=== PATIENT | male | born 1995 | race Asian ===

== ENCOUNTER 2017-03-26 18:43 | Emergency (ER) | payer OTHER ==
[~2017-03-26] VITALS: Ht 180.3 cm; Wt 72.8 kg
[2017-03-26 18:59] VITALS: TEMP 36.6; Ht 180.3 cm; Wt 72.8 kg
[2017-03-26] MEDS ORDERED: IBUPROFEN 600 MG TAB PO STA (19:12)
[2017-03-26] MEDS ORDERED: SODIUM CHLORIDE 0.9% 1000ML 1,000 ML IV STA (19:12)
[2017-03-26 19:37] LABS: BASO % 0.1 %; BASO ABS # 0.01 K/uL (0-0.2); COMPLETE YES; EOS % 0.2 %; HEMATOCRIT 47.9 % (42-52); IG% 0.2 %; LYMPH % 16.2 %; LYMPH ABS # 2.03 K/uL (1.2-3.4); MEAN CORPUSCULAR HEMOGLOBIN 27.1 pg (25-34); MEAN PLATELET VOLUME 9.3 fL (7.4-10.4); MONO % 6.1 %; NEUT % 77.2 %; PLATELET COUNT 212 K/uL (130-400); RED BLOOD COUNT 5.84 M/uL (4.7-6.1); WHITE BLOOD COUNT 12.54 K/uL (4.8-10.8)
[2017-03-26] MEDS ORDERED: [UNRECOGNIZED DRUG - OTHER] PO (19:37)
[2017-03-26 19:46] LABS: INR 1.1 (0.9-1.1); PARTIAL THROMBOPLASTIN RATIO 1.4; PROTHROMBIN TIME (PATIENT) 12.3 SECONDS (9.0-12.0)
--- NOTE | 2017-03-26 19:47 | DIAGNOSTIC IMAGING REPORT ---
CHEST 2 VIEWS ROUTINE CLINICAL HISTORY: Fever COMPARISON STUDY: No previous studies for comparison. FINDINGS: The cardiac and mediastinal contours are normal. There is no evidence of focal pulmonary consolidation. There is no evidence of failure. No pleural effusions are visualized.[ IMPRESSION: No active disease in the chest. Electronically signed by: Arnav Cazares M.D. 03/26/2017 7:46 PM Dictated Date/Time: 03/26/2017 7:46 PM
[2017-03-26 19:56] LABS: BUN/CREATININE RATIO 8.3 (10-20); CALCIUM 9.1 mg/dl (8.5-10.1); CREATININE 1.2 mg/dl (0.60-1.40); POTASSIUM 3.5 mmol/L (3.5-5.1)
[2017-03-26 20:10] LABS: URINE APPEARANCE CLOUDY (CLEAR); URINE BILIRUBIN NEG (NEG); URINE COLOR YELLOW; URINE EPITHELIAL CELL AUTO 20-30 /lpf (0-5); URINE NITRITE NEG (NEG); URINE PH 6.5 (4.5-7.5); URINE SPECIFIC GRAVITY 1.014 (1.000-1.030); UROBILINOGEN NEG (NEG)
[2017-03-26 20:11] LABS: MANUAL MICROSCOPIC REQUIRED? NO; REVIEW REQ? NO
[2017-03-26] MEDS ORDERED: CIPROFLOXACIN 500 MG TAB PO STA (20:25)
[2017-03-26 20:40] LABS: LYME DISEASE AB IGG NEG (NEG); LYME DISEASE AB IGM NEG (NEG)
[2017-03-26] MEDS ORDERED: CIPR-255 PO (20:54)
[2017-03-26 21:14] VITALS: BP 110/72; PULSE 89; O2SAT 95
--- NOTE | 2017-03-26 23:51 | EMERGENCY ROOM VISIT NOTE ---
History Report prepared by Wilfrido: Gabrielle Carrillo Under the Supervision of: Dr. Jordan Marks M.D. First contact with patient: 19:07 Chief Complaint: FEVER Stated Complaint: FEVER History of Present Illness The patient is a 21 year old male who presents to the Emergency Room with complaints of a constant fever beginning this morning. The patient states that he began to feel sick this morning and had chills and was shaking. He reports that he had some difficulty walking due to his shaking and notes that he gets a slight headache with standing. The patient states that his headache is now mostly resolved. He denies any significant neck pain or stiffness. He does note some mild burning with urination. He denies any cough, runny nose, sore throat, vomiting, abdominal pain, diarrhea, rash, and known tick bites. The patient states that he checked his temperature this morning and it was normal but this afternoon it was 102. He notes that he took 2 Tylenol 2 hours ago. Source of History: patient Onset: this morning Position: other (global) Symptom Intensity: 102 Quality: other (fever) Timing: constant Associated Symptoms: + chills, + headache (very mild), + urinary symptoms, No sorethroat, No cough, No vomiting, No abdominal pain, No diarrhea, No rash Note: Pt complains of shakiness and difficulty walking. He denies any runny nose and known tick bites Review of Systems See HPI for pertinent positives & negatives. A total of 10 systems reviewed and were otherwise negative. Past Medical & Surgical Medical Problems: (1) No Known Active Medical Problems Family History Cancer Diabetes mellitus FHx: gallbladder disease Heart disease Hypertension Kidney disease Kidney stones Social History Smoking Status: Never Smoker Smokeless Tobacco Use: No Alcohol Use: none Marital Status: single Housing Status: lives with roommate Occupation Status: [employer] student Current/Historical Medications Scheduled Ciprofloxacin Hcl (Cipro), 500 MG PO BID Scheduled PRN [Tylenol Complete], 2 TABS PO Q12 PRN for Pain or Fever Allergies Coded Allergies: No Known Allergies (Unverified , 03/26/17) Physical Exam Vital Signs Date Time Temp Pulse Resp B/P (MAP) Pulse Ox O2 Delivery O2 Flow Rate FiO2 03/26/17 21:14 89 18 110/72 95 03/26/17 20:05 81 16 115/77 100 Room Air 03/26/17 18:59 36.6 102 18 116/80 98 Room Air Physical Exam Constitutional: Vital signs reviewed. Eyes: Pupils are equal round reactive to light. Conjunctiva are noninjected. ENT: Pharynx is clear without erythema or exudate. Mucous membranes are moist. Neck supple without meningeal signs. Respiratory: Clear to auscultation bilaterally. Breath sounds are equal bilaterally. Cardiovascular: Regular rate and rhythm. No rubs or gallops. GI: Soft, nondistended and nontender. Bowel sounds are present. Musculoskeletal: No peripheral edema. No CVA tenderness. Integumentary: No cyanosis. Neurological: The patient is awake and alert. No focal deficits. Psychiatric: Normal affect. Medical Decision & Procedures ER Provider Diagnostic Interpretation: X-ray results as stated below per interpretation by me and the radiologist: CHEST 2 VIEWS ROUTINE FINDINGS: The cardiac and mediastinal contours are normal. There is no evidence of focal pulmonary consolidation. There is no evidence of failure. No pleural effusions are visualized. IMPRESSION: No active disease in the chest. Electronically signed by: Arnav Cazares M.D. 03/26/2017 7:46 PM Dictated Date/Time: 03/26/2017 7:46 PM Laboratory Results 03/26/17 19:24 Red Blood Count 5.84, Mean Corpuscular Volume 82.0, Mean Corpuscular Hemoglobin 27.1, Mean Corpuscular Hemoglobin Concent 33.0, Mean Platelet Volume 9.3, Neutrophils (%) (Auto) 77.2, Lymphocytes (%) (Auto) 16.2, Monocytes (%) (Auto) 6.1, Eosinophils (%) (Auto) 0.2, Basophils (%) (Auto) 0.1, Neutrophils # (Auto) 9.67, Lymphocytes # (Auto) 2.03, Monocytes # (Auto) 0.77, Eosinophils # (Auto) 0.03, Basophils # (Auto) 0.01 03/26/17 19:24 Test 03/26/17 19:24 White Blood Count 12.54 K/uL (4.8-10.8) Red Blood Count 5.84 M/uL (4.7-6.1) Hemoglobin 15.8 g/dL (14.0-18.0) Hematocrit 47.9 % (42-52) Mean Corpuscular Volume 82.0 fL (80-100) Mean Corpuscular Hemoglobin 27.1 pg (25-34) Mean Corpuscular Hemoglobin Concent 33.0 g/dl (32-36) Platelet Count 212 K/uL (130-400) Mean Platelet Volume 9.3 fL (7.4-10.4) Neutrophils (%) (Auto) 77.2 % Lymphocytes (%) (Auto) 16.2 % Monocytes (%) (Auto) 6.1 % Eosinophils (%) (Auto) 0.2 % Basophils (%) (Auto) 0.1 % Neutrophils # (Auto) 9.67 K/uL (1.4-6.5) Lymphocytes # (Auto) 2.03 K/uL (1.2-3.4) Monocytes # (Auto) 0.77 K/uL (0.11-0.59) Eosinophils # (Auto) 0.03 K/uL (0-0.5) Basophils # (Auto) 0.01 K/uL (0-0.2) RDW Standard Deviation 38.2 fL (36.4-46.3) RDW Coefficient of Variation 12.7 % (11.5-14.5) Immature Granulocyte % (Auto) 0.2 % Immature Granulocyte # (Auto) 0.03 K/uL (0.00-0.02) Prothrombin Time 12.3 SECONDS (9.0-12.0) Prothromb Time International Ratio 1.1 (0.9-1.1) Activated Partial Thromboplast Time 35.3 SECONDS (21.0-31.0) Partial Thromboplastin Ratio 1.4 Urine Color YELLOW Urine Appearance CLOUDY (CLEAR) Urine pH 6.5 (4.5-7.5) Urine Specific [place] 1.014 (1.000-1.030) Urine Protein 1+ (NEG) Urine Glucose (UA) NEG (NEG) Urine Ketones 1+ (NEG) Urine Occult Blood 2+ (NEG) Urine Nitrite NEG (NEG) Urine Bilirubin NEG (NEG) Urine Urobilinogen NEG (NEG) Urine Leukocyte Esterase LARGE (NEG) Urine WBC (Auto) >30 /hpf (0-5) Urine RBC (Auto) 10-30 /hpf (0-4) Urine Hyaline Casts (Auto) 0 /lpf (0-5) Urine Epithelial Cells (Auto) 20-30 /lpf (0-5) Urine Bacteria (Auto) 3+ (NEG) Anion Gap 7.0 mmol/L (3-11) Est Creatinine Clear Calc Drug Dose 100.3 ml/min Estimated GFR () 99.6 Estimated GFR (Non- 85.9 BUN/Creatinine Ratio 8.3 (10-20) Calcium Level 9.1 mg/dl (8.5-10.1) Total Bilirubin 2.4 mg/dl (0.2-1) Direct Bilirubin 0.2 mg/dl (0-0.2) Aspartate Amino Transf (AST/SGOT) 10 U/L (15-37) Alanine Aminotransferase (ALT/SGPT) 17 U/L (12-78) Alkaline Phosphatase 92 U/L (45-117) Total Protein 8.3 gm/dl (6.4-8.2) Albumin 4.5 gm/dl (3.4-5.0) Lyme Disease IgG Antibody NEG (NEG) Lyme Disease IgM Antibody NEG (NEG) Monoscreen NEG (NEG) Laboratory results as reviewed by me. Medications Administered Medications (Trade) Dose Ordered Sig/Kiran Route Start Time Stop Time Status Last Admin Dose Admin Sodium Chloride 1,000 ml @ 999 mls/hr Q1H1M STAT IV 03/26/17 19:12 03/26/17 20:12 DC 03/26/17 19:29 999 MLS/HR Ibuprofen (Motrin Tab) 600 mg NOW STAT PO 03/26/17 19:12 03/26/17 19:14 DC 03/26/17 19:29 600 MG Ciprofloxacin (Cipro Tab) 500 mg NOW STAT PO 03/26/17 20:25 03/26/17 20:27 DC 03/26/17 21:10 500 MG ED Course 1906: The patient was evaluated in room C2. A complete history and physical exam was performed. 1911: Motrin Tab 600mg PO, Sodium Chloride 1000 ml @ 999 mls/hr IV. 2024: Cipro Tab 500mg PO. 2046: I discussed the test results with the patient and his friend. 2058: Upon reevaluation, the patient appeared to have improvement of his symptoms. I discussed tonight's findings with the patient. He verbalized agreement of the treatment plan. The patient was discharged home. Medical Decision This is a 21-year-old male who presents with a fever. Differential diagnoses considered include viral syndrome, infectious mononucleosis, Lyme disease, pneumonia, UTI, meningitis. I did perform a limited focused review of portions of the patient's old chart on the electronic medical record. The patient has had no prior visits to this hospital. I did evaluate the patient as noted above. The patient is presenting with a fever. He also complains of urinary symptoms. IV access was established. I did order and personally review the patient's urinalysis and chest x-ray as described above. He does have a UTI. A urine culture was sent. I did treat him with Cipro. I did order and review the patient's blood work as noted in the electronic medical record. His white blood cell count is mildly elevated. I did discuss the test results with the patient and his friend. I did treat the patient with Motrin and normal saline IV. I did recommend close follow up with a regular physician. He was discharged with a prescription for Cipro. Medication Reconcilliation Current Medication List: was personally reviewed by me Blood Pressure Screening Patient's blood pressure: Normal blood pressure Blood pressure disposition: Did not require urgent referral Impression Primary Impression: UTI (urinary tract infection) Scribe Attestation The scribe's documentation has been prepared under my direct and personally reviewed by me in its entirety. I confirm that the note above accurately reflects all work, treatment, procedures, and medical decision making performed by me. Departure Information Dispostion Home / Self-Care Prescriptions Ciprofloxacin Hcl (CIPRO) 500 Mg Tab 500 MG PO BID, #20 TAB Prov: Jordan Marks M.D. 03/26/17 Referrals No Doctor, Assigned (PCP) Forms HOME CARE DOCUMENTATION FORM, IMPORTANT VISIT INFORMATION Patient Instructions ED UTI Cystitis Male, My [facility] Additional Instructions You have been examined and treated today on an emergency basis only. This is not a substitute for, or an effort to provide, complete comprehensive medical care. It is impossible to recognize and treat all injuries or illnesses in a single emergency department visit. It is therefore important that you follow up closely with a physician. Call as soon as possible for an appointment. Return for worsening symptoms or if you develop abdominal pain, vomiting, or any other concerning symptoms. Problem Qualifiers Primary Impression: UTI (urinary tract infection) Urinary tract infection type: acute cystitis Hematuria presence: with hematuria Qualified Codes: N30.01 - Acute cystitis with hematuria
== END 2017-03-26 21:15 | disposition home or self-care (01) ==
LOC: C.EDB 18:44 → C.EDC 21:15
DX: N39.0 Urinary tract infection, site not specified (principal); Z80.9 Family history of malignant neoplasm, unspecified; Z83.3 Family history of diabetes mellitus; Z83.79 Family history of other diseases of the digestive system; Z82.49 Family history of ischemic heart disease and other diseases of the circulatory system; Z84.1 Family history of disorders of kidney and ureter